=== PATIENT | female | born 1950 | race Caucasian/White ===

== ENCOUNTER 2024-03-17 09:53 | Outpatient (AMB) | payer OTHER, SELFPAY ==
[2024-03-17 10:09] VITALS: BP 114/72; PULSE 89; O2SAT 95; BMI 37.4
--- NOTE | 2024-03-17 10:09 | MHC.OFFVIS ---
Vital Signs 03/17/24 10:09 Height 5 ft 3 in Weight 211 lb BMI 37.4 BP 114/72 Blood Pressure Location Rt brachial Position Sitting Pulse 89 Pulse Source Pulse Oximeter Pulse Oximetry (%) 95 Oxygen Delivery Method Room Air Intake Visit Reasons: ENP-Ataxia/Frequent Fall/dizziness/Wht matter-conf Intake Note: patient presents for balance issues Allergies lovastatin Allergy (Unknown, Verified 03/17/24 10:10) Unknown metformin Allergy (Unknown, Verified 03/17/24 10:10) Unknown sulfamethoxazole [From Bactrim] Allergy (Unknown, Verified 03/17/24 10:10) Unknown trimethoprim [From Bactrim] Allergy (Unknown, Verified 03/17/24 10:10) Unknown HPI Comments Details: Right-handed 73- yr-old female presents for new pt evaluation of gait difficulties. Pt accompanied by her , Best. Pt is concerned about becoming more off-balance in the last 6 months, may be longer. She states she walks like I'm drunk . Sometimes is dizzy, but not as severe as when she she had a severe bout of vertigo 9 yrs ago- did vestibular tx which helped. PMH: Pt's reports her diabetes is not greatly controlled- BG 200's. Unsure of last HgA1C. F/b endocrinology. HTN is well-controlled. Denies known h/o stroke, however states she thinks she has- as she has had left sided weakness ofr about a yr now. ADL status: Ind IADL status: Her does most of this- as she is often in bed all day d/t body pains, GI pains, fatigue. Fine-motor skills: No issues Micrographia: Mild shkiness Vision changes: Sttaes vision is ok. Uses readers. Has annual eye diabetic eye exam. Hypophonia: No changes Hyposmia: Sense of smell and taste has been off for years, when this started she also had hallitosis. Dysphagia: Denies Drooling: Nocturnal drooling- mild Orthostatic lightheadedness: Denies- but stands up slowly GI: IBS- constipation vs loose stools : Urinary frequency - she r/t drinks a lot of fluid Slowness: Slower Freezing episodes: Denies Tremor: BUE, but more left handed rest tremor- started about a month ago. Involuntary movements: None Dyskinesia: None Stiffness: Denies. [place]: No neck pain. Chronic non-radiating low back pain- worse when standing longer, say when doing dishes the dishes. Paresthesias: BUE hands and LUE- sometimes pins and needles, other times numbness. BLE- feels like she is walking on stones- states d/t diabetic neuropathy, has never had an EMG/NCS. Gait changes: Slow to stand- states scared to stand. Was falling- has difficulty moving her legs, shuffles a bit- pt states because she is scared to fall. Sometimes it feels like she is being pulled to the left side. Fall could be forward or backward, but more to the left. Last fall was a few weeks ago. Sleep difficulty: Sleeps a lot. Endorses snoring. No h/o sleep study. Parasomnias: Talks/murmurs in her sleep. Memory impairment: Ok Hallucinations: Denies Usual exercise: Denies any. Brain MRI w/o, Nov 2023: Extensive patchy and confluent T2/FLAIR in the periventricular deep and subcortical white matter. History of concussion/head injury? Denies History of neuroleptic (metoclopramide/antipsychotics) use? Denies. History of psychiatric hospitalizations? Denies History of occupational chemical exposures? 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 Family history of movement disorders? Denies. Family history of mood disorder or suicide? Denies [facility] Surgical History Hx of colonoscopy History of esophagogastroduodenoscopy (EGD) Family History Mother Cancer, colon Father Diabetes Brother Myocardial infarct Social History Alcohol intake: never Patient Tobacco Use Status: Never used Tobacco Review of Systems Const All systems reviewed & are unremarkable except as noted in HPI and below Physical Exam Vital Signs: Last Vital Signs Pulse 89 03/17/24 10:09 BP 114/72 03/17/24 10:09 Pulse Ox 95 03/17/24 10:09 Oxygen Delivery Method Room Air 03/17/24 10:09 BMI result Body Mass Index 37.4 Const General: cooperative and no acute distress HEENT Face and sinus: Yes other (Decreased expression and blink) Resp Effort & Inspection: normal respiratory effort and able to speak in complete sentences Cardio Rate: regular rate Rhythm: regular rhythm Neuro Other: General: A&O x's 3, Mallampti st IV Expression: Intact Voice: Intact Tremor: Mild LUE postural tremor Tone: BUE mild tone, more so in left Dyskinesia: None BUE GEORGES: ok Finger-Nose- Slow, w/o tremor FFM: BUE slow, decreased on left Foot taps: BLE slow, decreased, more so on left Gait: Slow to stand, uses hands, slight stoop, left drooped shoulder, left no arm swing, shorter steps w/ low floor clearance, unsteady during turns. Psych: Pleasant affect. MS: 5/5 throughout. No pronator drift. DTRs 2+ throughout Psych Mental Status: mental status grossly normal Speech and movement: Normal speech and movement present Affect: normal affect Attitude: cooperative Thought process: Normal thought process present Assessment & Plan Assessment & Plan (1) Gait difficulty: Comment: Likely multifactorial, diabetic neuropathy s/s, early movement d/o s/s- likely w/ a vascular component Code(s): R26.9 - Unspecified abnormalities of gait and mobility Category: Medical (2) Frequent falls: Code(s): R29.6 - Repeated falls Category: Medical (3) Diabetic neuropathy: Code(s): E11.40 - Type 2 diabetes mellitus with diabetic neuropathy, unspecified Category: Medical (4) Hypersomnia: Code(s): G47.10 - Hypersomnia, unspecified Category: Medical (5) Sleep difficulties: Code(s): G47.9 - Sleep disorder, unspecified Category: Medical (6) Parasomnia: Code(s): G47.50 - Parasomnia, unspecified Category: Medical (7) Snoring: Code(s): R06.83 - Snoring Category: Medical Plan Reviewed brain MRI w/o report- Extensive patchy and confluent T2/FLAIR in the periventricular deep and subcortical white matter. Will request recent cardiology work-up. Pt advised to undergo in-lab PSG to assess for sleep apnea. Start PT for gait and balance. Monitor tremor, slowness. Pt seen in collabortaion w/ Dr Ivana Pedraza. F/u upon review of above and in clinic in 6 months or sooner prn. Orders: Orders PT Evaluation and Treatment Today E11.40 - Type 2 diabetes mellitus with diabetic neuropathy, unspecified, R26.9 - Unspecified abnormalities of gait and mobility, R29.6 - Repeated falls RT PSG in-lab sleep study Today G47.10 - Hypersomnia, unspecified, G47.50 - Parasomnia, unspecified, G47.9 - Sleep disorder, unspecified, R06.83 - Snoring Coding Level of Care Code New Pt Level 4 (53354) Diagnoses Gait difficulty R26.9 Frequent falls R29.6 Diabetic neuropathy E11.40 Hypersomnia G47.10 Sleep difficulties G47.9 Parasomnia G47.50 Snoring R06.83
== END 2024-03-17 11:35 | disposition home or self-care (01) ==
PROVIDERS: PCP Internal Medicine; Visit Provider Nurse Practitioner Family
DX: R26.9 Unspecified abnormalities of gait and mobility (principal); R29.6 Repeated falls; E11.40 Type 2 diabetes mellitus with diabetic neuropathy, unspecified; G47.10 Hypersomnia, unspecified; G47.9 Sleep disorder, unspecified; G47.50 Parasomnia, unspecified; R06.83 Snoring
CPT/HCPCS: 99204

== ENCOUNTER → 2024-03-17 09:53 | Outpatient (BNVA) | payer OTHER, SELFPAY | PROVIDERS: PCP Internal Medicine; Visit Provider Nurse Practitioner Family ==